=== PATIENT | female | born 1980 | race Caucasian/White ===

== ENCOUNTER 2017-02-01 17:26 | Emergency (ER) | payer SELFPAY ==
[~2017-02-01] VITALS: Ht 157.5 cm; Wt 77.0 kg
[2017-02-01] MEDS ORDERED: IBUPROFEN 600MG TABLET PO ONE (18:45)
[2017-02-01] MEDS ORDERED: HYDROCODONE/ACETAMINOPHEN 5/325MG TABLET PO ONE (20:45)
[2017-02-01 21:21] VITALS: BP 117/87
== END 2017-02-01 21:32 | disposition home or self-care (01) ==
LOC: ER 17:26
DX: S92.355A Nondisplaced fracture of fifth metatarsal bone, left foot, initial encounter for closed fracture (principal); W01.0XXA Fall on same level from slipping, tripping and stumbling without subsequent striking against object, initial encounter; Y93.89 Activity, other specified; Y92.488 Other paved roadways as the place of occurrence of the external cause
CPT/HCPCS: 29515; 73630; 99284